=== PATIENT | female | born 1970 | race African-American/Black ===

== ENCOUNTER 2018-12-14 20:56 | Emergency (ER) | payer OTHER ==
[~2018-12-14] VITALS: Ht 165.1 cm; Wt 89.4 kg
[~2018-12-14 20:56] MED LIST: ACETAMINOPHEN-1 EAC1 PO; AMARYL2 MG PO; COZAAR100 MG; CYCLOBENZAPRINE10 MG PO; ELAVIL; FLEXERIL PO; GLUCOPHAGE1000 MG PO; GLUCOPHAGE500 MG PO; GLYCOPYRROLATE 22 M1; HUMALOG100 UNIT/1 SQ; INSULIN SYRING1 EA13 SUBQ; LANTUS100 UNIT/M SQ; LEVEMIR SUBQ; MOTRIN 600 MG600 M1 OR; NORCO 5-325 TA1 EACH PO; NOVOLIN R100 UNIT/1 SUBQ
[2018-12-14] MEDS ORDERED: NEURONTIN 300300 M1 PO (21:25)
[2018-12-14] MEDS ORDERED: LIPITOR 20 MG T20 M1 PO (21:25)
[2018-12-14] MEDS ORDERED: DEMADEX20 MG PO (21:26)
[2018-12-14] MEDS ORDERED: CARDIZEM CD240 MG PO (21:26)
[2018-12-14 21:42] LABS: CALCIUM 8.7 mg/dL (8.5-10.1); CREATININE 3.3 mg/dL (0.6-1.0); POTASSIUM 3.8 mmol/L (3.5-5.1)
[2018-12-14 21:53] LABS: ABSOLUTE NEUTROPHILS 8.2 thou/uL (1.4-8.2); BASOPHILS 0.6 % (0.0-2.0); EOSINOPHILS 1.4 % (0.0-3.0); HEMATOCRIT 32.6 % (37.0-47.0); LYMPHOCYTES 23.8 % (24.0-44.0); MCH 26.9 pg (26.0-34.0); MCHC 33.7 g/dL (28.0-37.0); MCV 79.7 fL (80.0-100.0); MONOCYTES 5.6 % (1.0-8.0); PLATELET COUNT 451 thou/uL (150-400); POLYS 68.6 % (36.0-66.0); RBC 4.09 mil/uL (4.20-5.00); RDW 13.2 % (10.5-14.5)
[2018-12-15] MEDS ORDERED: INSULIN SYRING1 EA28 SUBQ (00:36)
[2018-12-15 00:42] VITALS: BP 145/78
== END 2018-12-15 00:43 | disposition home or self-care (01) ==
LOC: ER 20:56
PROVIDERS: Emergency Medicine
DX: E11.22 Type 2 diabetes mellitus with diabetic chronic kidney disease (principal); N18.9 Chronic kidney disease, unspecified; I10 Essential (primary) hypertension; Z79.4 Long term (current) use of insulin; Z90.89 Acquired absence of other organs

== ENCOUNTER 2019-04-13 13:56 | Inpatient (IN) | payer OTHER ==
[~2019-04-13] VITALS: Ht 170.2 cm; Wt 89.4 kg
[~2019-04-13 13:56] MED LIST changes: +CARDIZEM CD240 MG PO; +DEMADEX20 MG PO; +INSULIN SYRING1 EA28 SUBQ; +LIPITOR 20 MG T20 M1 PO; +NEURONTIN 300300 M1 PO
[2019-04-13 13:58] VITALS: BP 119/67
[2019-04-13] MEDS ORDERED: ALBUTEROL2.5 MG/0.5 INH (14:11)
[2019-04-13 14:13] LABS: BE(vivo) -7.5 mmol/L (-2 to +3); HCO3 18.7 mmol/L (22.0-26.0); PCO2 40.3 mmHg (35.0-45.0); PO2 63.3 mmHg (80.0-100.0); pH 7.284 (7.360-7.450); sO2 89.7 % (92.0-98.0)
[2019-04-13 14:20] LABS: HEMATOCRIT 23.2 % (37.0-47.0); HEMOGLOBIN 7.8 gm/dL (12.0-15.0); MCH 27.6 pg (26.0-34.0); MCHC 33.4 g/dL (28.0-37.0); MCV 82.6 fL (80.0-100.0); PLATELET COUNT 398 thou/uL (150-400); RBC 2.81 mil/uL (4.20-5.00); RDW 13.7 % (10.5-14.5); WBC 20.6 thou/uL (4.0-11.0)
[2019-04-13 14:28] LABS: APTT 33.8 Seconds (24.5-32.8); INR 1.1; PROTIME 11.4 Seconds (9.3-11.4)
[2019-04-13 14:33] LABS: ALBUMIN 2.5 g/dL (3.4-5.0); CALCIUM 8.6 mg/dL (8.5-10.1); CREATININE 4.6 mg/dL (0.6-1.0); MAGNESIUM 2.2 mg/dL (1.8-2.4); TOTAL BILIRUBIN 1.2 mg/dL (<0.1-1.0); TOTAL PROTEIN 7.7 g/dL (6.4-8.2)
[2019-04-13 14:36] LABS: TROPONIN-I 0.72 ng/mL (<0.06)
[2019-04-13 14:41] LABS: ABSOLUTE NEUTROPHILS 16.3 thou/uL (1.4-8.2); METAMYELOCYTES 1 %; PLATELET ESTIMATE NORMAL
[2019-04-13 15:13] VITALS: BP 113/79
[2019-04-13 15:50] LABS: URINE BILIRUBIN NEGATIVE (Negative); URINE BLOOD TRACE (Negative); URINE CLARITY CLOUDY; URINE COLOR YELLOW; URINE GLUCOSE-RANDOM* TRACE (Negative); URINE KETONES NEGATIVE (Negative); URINE LEUKOCYTES-REFLEX NEGATIVE (Negative); URINE NITRITE-REFLEX NEGATIVE (Negative); URINE PROTEIN (DIPSTICK) 3+ (Negative); URINE SPECIFIC GRAVITY 1.025 (1.005-1.035); URINE UROBILINOGEN 0.2 E.U./dl (0.2-1.0)
[2019-04-13 15:54] LABS: AMP/METHAMP Negative (Negative); BARBITURATES Negative (Negative); BENZODIAZEPINES Negative (Negative); COCAINE Negative (Negative); METHADONE Negative (Negative); OPIATES POSITIVE (Negative); PCP Negative (Negative)
[2019-04-13 15:59] LABS: AMORPHOUS URATES Many /LPF (None Seen); SQUAMOUS 4-10 Moderate /LPF (0-3); URINE RBC 0-2 Rare /HPF (0-2); URINE WBC-REFLEX 6-15 Few /HPF (0-5)
[2019-04-13 16:00] LABS: FINE GRANULAR CASTS 0-3 Few /LPF (None Seen)
[2019-04-13 16:28] VITALS: BP 130/77
[2019-04-13 16:34] LABS: CHOLESTEROL 200 mg/dL (<200); HDL CHOLESTEROL 68 mg/dL (>40); LDL CHOLESTEROL 119 mg/dL (<100); TC:HDL 2.9 Ratio (Not establshd); TRIGLYCERIDE 69 mg/dL (<150); VLDL 14 mg/dL (<40)
[2019-04-13 17:20] VITALS: BP 124/73
--- NOTE | 2019-04-13 17:49 | NUR ---
TO UNIT FROM Abi AT 1715 BY RAFAEL, REPORT FROM HEIDE WALKER. ORIENTED TO UNIT, FALL PRECAUTIONS. RYAN TO DD. GRAF ORDERED. DR. TRUJILLO HERE. SR PER TELE. WILL CONTINUE TO FOLLOW
[2019-04-13 19:06] LABS: CALCIUM 9.5 mg/dL (8.5-10.1); CREATININE 4.7 mg/dL (0.6-1.0); MAGNESIUM 2.3 mg/dL (1.8-2.4)
[2019-04-13 19:09] LABS: POTASSIUM 6.2 mmol/L (3.5-5.1)
[2019-04-13 19:44] VITALS: BP 130/75
[2019-04-14] VITALS (7 sets, daily range): BP systolic 106–139; BP diastolic 67–84
[2019-04-14 02:52] LABS: PROT/CREAT RATIO 3.1; URINE CREATININE-RANDOM* 30.4 mg/dL; URINE PROTEIN-RANDOM* 93.7 mg/dL (<11.9)
--- NOTE | 2019-04-14 05:03 | NUR ---
ASSUMED PT CARE AT 1900 WITH NO SIGN OF DISTRESS NOTED IN PT. PT IS ALERT AND ORIENTED. FAMILY AT BEDSIDE. PT IS STABLE. PT IS SEEN BY DR MITCHELL. LABS ORDERED, CAT SCAN ORDERED. PT IS TRANSFERED FOR COMPLETION OF CAT SCAN. DAVIS IN PLACE. LASIX DRIP STARTED. ASSESSMENT COMPLTED AND CHARTED. SCHEDULED MEDS ADMINISTERED TO PT. PT TOLERATED PO INTAKE. FALL PRECAUTION IN PLACE. FAMILY AT BEDSIDE. CONTINUE TO MONITOR PATIENT. PT IS STABLE THROUGHOUT THE NIGHT. DENIES ANY FURTHER NEEDS AT THIS TIME.
[2019-04-14 05:10] LABS: GLYCOHEMOGLOBIN (HGB A1C) 14.6 % (4.8-5.6)
[2019-04-14 05:40] LABS: HEMATOCRIT 21.5 % (37.0-47.0); HEMOGLOBIN 7.1 gm/dL (12.0-15.0); MCH 27.1 pg (26.0-34.0); MCHC 33.1 g/dL (28.0-37.0); MCV 81.7 fL (80.0-100.0); RBC 2.64 mil/uL (4.20-5.00); RDW 13.6 % (10.5-14.5); WBC 18.7 thou/uL (4.0-11.0)
[2019-04-14 05:42] LABS: CREATININE 4.4 mg/dL (0.6-1.0); MAGNESIUM 2.1 mg/dL (1.8-2.4)
[2019-04-14 05:44] LABS: POTASSIUM 4.8 mmol/L (3.5-5.1)
[2019-04-14 11:30] LABS: ALBUMIN 2.5 g/dL (3.4-5.0); DIRECT BILIRUBIN 0.4 mg/dL (<0.1-0.3); TOTAL BILIRUBIN 0.5 mg/dL (<0.1-1.0)
--- NOTE | 2019-04-14 14:42 | 2DMMODE ---
[facility] [address] [place] [address] 2 D/M-MODE ECHOCARDIOGRAM Name: NICOLAS DELGADO Room #: 215-P [facility] IN .R.#: [id number] Admission: 04/13/19 Attend Phys: Guero Cohen, Discharge: Date of : 68 Date of Service: 04/14/19 1441 Report #: [id number] THIS REPORT FOR: //name// APPROVED REPORT Study performed: 04/14/2019 12:17:08 EXAM: Comprehensive 2D, Doppler, and color-flow Echocardiogram Patient Location: In-Patient Room #: 215 Status: routine BSA: 2.07 HR: 96 bpm BP: 127/75 mmHg Rhythm: NSR Other Information Study Quality: Adequate Indications Diabetes Elevated Troponin Hypertension/HDD HLD, Renal failure 2D Dimensions RVDd: 30.32 mm IVSd: 10.07 (7-11mm) LVOT Diam: 20.73 (18-24mm) LVDd: 48.47 mm PWd: 8.50 (7-11mm) Ascending Ao: 28.93 (22-36mm) LVDs: 35.00 (25-40mm) Aortic Root: 29.93 mm IVC: 23.00 mm Volumes Left Atrial Volume (Systole) Single Plane 4CH: 32.29 mL Single Plane 2CH: 48.91 mL LA ESV Index: 24.00 mL/m2 Aortic Valve AoV Peak Lexa.: 1.38 m/s AO Peak Gr.: 7.66 mmHg LVOT Max P.48 mmHg LVOT Max V: 0.93 m/s SATINDER Vmax: 2.27 cm2 Mitral Valve [facility] [address] [place] [address] 2 D/M-MODE [facility]OCARDIOGRAM [facility] #: [facility]P [facility] IN [facility].#: [id number] Admission: 04/13/19 Attend Phys: Guero Cohen, Discharge: Date of : 68 Date of Service: 04/14/19 1441 Report #: [id number] E/A Ratio: 1.2 MV Decel. Time: 140.79 ms MV E Max Lexa.: 1.18 m/s MV A Lexa.: 0.97 m/s MV PHT: 40.83 ms IVRT: 83.04 ms Pulmonary Valve PV Peak Lexa.: 0.96 m/s PV Peak Gr.: 3.66 mmHg Pulmonary Vein P Vein S: 0.45 m/s P Vein A: 0.30 m/s P Vein D: 0.38 m/s P Vein A Dur.: 90.0 msec P Vein S/D Ratio: 1.18 Tricuspid Valve TR Peak Lexa.: 2.62 m/s TR Peak Gr.: 27.45 mmHg PA Pressure: 42.00 mmHg Left Ventricle The left ventricle is normal size. There is normal left ventricular wall thickness. The left ventricular systolic function is normal. The left ventricular ejection fraction is within the normal range. LVEF is 50-55%. The left ventricular diastolic function is normal. Right Ventricle The right ventricle is normal size. The right ventricular systolic function is normal. Atria The left atrium size is normal. The right atrium size is normal. Aortic Valve The aortic valve is normal in structure. No aortic regurgitation is present. There is no aortic valvular stenosis. Mitral Valve The mitral valve is normal in structure. Mild mitral regurgitation. No evidence of mitral valve stenosis. Tricuspid Valve The tricuspid valve is normal in structure. Mild tricuspid regurgitation. Estimated PAP is 42mmHg. [address] [address] 2 D/M-MODE ECHOCARDIOGRAM Name: JAYLIN DELGADOERWIN Room #: 215-P [facility] IN M.R.#: [id number] Admission: 04/13/19 Attend Phys: Guero Cohen, Discharge: Date of : 68 Date of Service: 04/14/19 1441 Report #: [id number] Pulmonic Valve Pulmonic valve is not well visualized. Great Vessels The aortic root is normal in size. IVC is normal in size and collapses <50% with inspiration. Pericardium Trace pericardial effusion. <Conclusion> The left ventricle is normal size. LVEF is 50-55%. The aortic valve is normal in structure. The mitral valve is normal in structure. Mild mitral regurgitation. The tricuspid valve is normal in structure. Mild tricuspid regurgitation. Estimated PAP is 42mmHg. Pulmonic valve is not well visualized. Trace pericardial effusion. <ELECTRONICALLY SIGNED> By: Martinez Vicente MD 04/14/19 1441 1441 144 Martinez Vicente MD /INF
--- NOTE | 2019-04-14 16:15 | NUR ---
PT ALERT AND ORIENTED TIMES FOUR, BUT SOMEWHAT SLOW TO RESPOND TO QUESTIONS. VSS, 100%2L, SR ON TELE, DAVIS TO DD. LASIX GTT INFUSING PER ORDER. PT DENIES PAIN/SOA. PT TOLERATES MEDS AND SMALL PORTIONS OF MEALS. PT UP TO RESTROOM WITH STANDBY ASSIST. PT BEDSIDE. WILL CONTINUE TO MONITOR.
--- NOTE | 2019-04-14 18:56 | HC ---
[facility] [place] [address] CONSULTATION Name: NICOLAS DELGADO Room #: 215-P [facility] IN M.R.#: [id number] Admission: 04/13/19 Attend Phys: Guero Cohen MD Discharge: Date of : 68 Report #: [id number] THIS REPORT FOR: //name// CC: Guero Donahue DATE OF SERVICE: 04/14/2019 ENDOCRINE CONSULTATION NOTE CONSULTING PHYSICIAN: Dr. Joel Romero. REASON FOR CONSULTATION: Uncontrolled type 2 diabetes mellitus. HISTORY OF PRESENT ILLNESS: This is a 49-year-old female patient whose medical background is significant for chronic kidney disease, hypertension, type 2 diabetes mellitus and hyperlipidemia. The patient was admitted yesterday with increasing somnolence, weakness and fatigue and was found to have hyperkalemia as well as acute kidney failure. The patient notes that she has been a diabetic for many years and that she had gradually transitioned from oral antidiabetic agents to insulin based therapy a few years ago. Unfortunately, due to lack of access to medications, she has been without any insulin for over a year until she resumed it again a few months ago when she became employed again. Currently, she is on a regimen of Levemir insulin 50 units q.p.m. and NovoLog insulin at 20 units t.i.d. a.c. The patient has been checking her blood glucose at home only sporadically and notes that most of these have been under 300 mg/dL. She denies issues with hypoglycemia, but notes that she has had occasions of blood glucose getting into the 80s; at which point, she would start developing hypoglycemic symptoms. As noted above, the patient has chronic kidney disease; bilateral diabetic retinopathy, warranting laser surgery over both eyes; diabetic peripheral neuropathy, but not cardiac disease. Also, she is known to have hypertension and hyperlipidemia. REVIEW OF SYSTEMS: CONSTITUTIONAL: Fatigue, tiredness, but not fever or chills. PULMONARY: No cough or hemoptysis, but has had some dyspnea on exertion and shortness of breath. HEENT: Negative for congestion, ear discharge, ear aches. CARDIAC: Some chest tightness, palpitations, but not syncope or presyncope. GASTROINTESTINAL: Abdominal discomfort, nausea, but no vomiting. No change in level frequency. NEUROLOGY: Weakness, lightheadedness, but not seizures or loss of consciousness. [facility] [address] [place] [address] CONSULTATION Name: NICOLAS DELGADO Room #: 215-P [facility] IN M.R.#: [id number] Admission: 04/13/19 Attend Phys: Guero Cohen MD Discharge: Date of : 68 Report #: [id number] SKIN: Negative for rash, ulceration or itching. PSYCHIATRIC: Negative for confusion, delusions, hallucinations. Otherwise, review of system is noncontributory, unless mentioned in HPI. PAST MEDICAL HISTORY: 1. Type 2 diabetes mellitus. 2. Chronic kidney disease. 3. Hyperlipidemia. 4. Hypertension. 5. Peripheral diabetic neuropathy. 6. Diabetic retinopathy. PAST SURGICAL HISTORY: Tonsillectomy. FAMILY HISTORY: Noncontributory. SOCIAL HISTORY: The patient is . She has four children. She works in customer service. Denies use of tobacco. Drinks alcohol only rarely. OUTPATIENT MEDICATIONS: Include Levemir insulin 50 units q.p.m., NovoLog insulin 20 units t.i.d. a.c., losartan 100 mg daily, amitriptyline, gabapentin 300 mg b.i.d., atorvastatin 20 mg at night, torsemide 20 mg daily, diltiazem 240 mg daily, AccuNeb solution q.i.d. ALLERGIES: No known drug allergies. PHYSICAL EXAMINATION: GENERAL: This is a pleasant -[place] female patient who is not in apparent distress. VITAL SIGNS: Blood pressure is 127/75 mmHg, heart rate is 98 beats per minute, respirations 18 per minute, temperature 36.7 degrees. HEENT: Anicteric sclerae. Intact extraocular motions. NECK: Supple, without JVD, carotid bruits or lymphadenopathy. I do not appreciate thyromegaly. CHEST: Noted for moderate air entry bilaterally with scattered rales, but no rhonchi or wheezes. HEART: Regular rate and rhythm without murmurs or gallops. ABDOMEN: Soft and lax without tenderness or organomegaly. She has active bowel sounds. LOWER EXTREMITIES: Noted for trace ankle edema bilaterally. Diminished sensation to light touch, but no ulceration. NEUROLOGIC: Awake, alert and oriented to time, place and person. The remainder of her examination is nonfocal other than for lower extremity sensory deficit. PSYCHIATRIC: Pleasant, awake, alert, oriented to time, place and person, interactive. Normal mood and affect. SKIN: Intact. No rash or ulceration. [facility] [address] [place] [address] CONSULTATION Name: NICOLAS DELGADO Room #: 215-P [facility] IN M.R.#: [id number] Admission: 04/13/19 Attend Phys: Guero Cohen MD Discharge: Date of : 68 Report #: [id number] LABORATORY DATA: Blood sugar values since arrival ranged from 195-330 mg/dL. Otherwise, sodium 133, potassium 4.8, chloride 96, CO2 of 23, anion gap of 14, BUN 52, creatinine 4.4. Her baseline is at 1.1 in 2013, AST 158, lipase 297, total bilirubin 1.2, calcium 9.0, magnesium 2.1, alkaline phosphatase 251, ALT 141, total protein 7.7, albumin 2.5, EGFR 13, troponin 0.42. Total cholesterol 200, triglycerides 69, HDL 68, LDL 119. BNP 15,423. INR 1.1. White blood count 18.7, hemoglobin 7.1, hematocrit 21.5, platelets 422. Hemoglobin A1c of 14.6%. Procalcitonin 3.94. Urine protein +3. ASSESSMENT AND PLAN: 1. Type 2 diabetes mellitus. As noted above, the patient has a fairly uncontrolled baseline as reflected by her report, her daily blood glucose values, the measured hemoglobin A1c of 14.6%, and the abundance of microvascular complications that she has suffered over the years. The patient and I had a lengthy discussion about the pathogenesis of diabetes mellitus and the importance of maintaining adequate control so as to stabilize these complications and hopefully prevent further progression, which she seems to understand well. Unfortunately, the patient's ability to maintain adequate control has been hindered by her inability to access antidiabetic agents, but fortunately, she has regained insurance coverage a few months ago and this would be a huge help to our ability to control her disease better. In the immediate setting, I will place the patient on: 1. Lantus insulin 30 units q.p.m. 2. Humalog insulin 10 units t.i.d. a.c. 3. Humalog insulin supplemental scale, moderate intensity. Furthermore, we will monitor her blood glucose values a.c. and at bedtime and adjust her insulin regimen according to these values to implement the best control possible. 2. Hyperlipidemia. The patient is on atorvastatin therapy; however, her lipid panel is indicative of inadequate control, this will need to be augmented, but I would wait until her overall state has been stabilized further. 3. Hypertension. The patient's blood pressure control is adequate. She is currently on diltiazem, furosemide. Dr. Romero is actively following the patient. [facility] [address] [place] [address] CONSULTATION Name: JAYLIN DELGADOERWIN Room #: 215-P ADM IN M.R.#: [id number] Admission: 04/13/19 Attend Phys: Guero Cohen MD Discharge: Date of : 68 Report #: [id number] 4. Chronic kidney disease. The patient has acute on chronic kidney injury. She is undergoing evaluation and management by Dr. Romero. 5. Cardiovascular disease. The patient has elevated troponin, significantly elevated BNP and undergoing a Cardiology evaluation at this point as well. I greatly appreciate Dr. Romero's invitation to participate in the care of this pleasant patient. <ELECTRONICALLY SIGNED> By: Angelica Zhu MD 04/14/19 1856 1107 1145 Angelica Zhu MD /nt
--- NOTE | 2019-04-15 05:19 | NUR ---
ASSUMED PT CARE AT 1900 WITH NO SIGN OF DISTRESS NOTED IN PT.PT IS ALERT AND ORIENTED. FAMILY AT BEDSIDE. ASSESSMENT COMPLETED AND CHARTED. VITAL SIGNS STABLE. SCHEDULED MEDS ADMINISTERED TO PT. PT TOLERATED PO INTAKE. DENIES ANY FURTHER NEEDS AT THIS TIME.
[2019-04-15 05:23] VITALS: BP 134/77
[2019-04-15 06:09] LABS: RBC 2.58 mil/uL (4.20-5.00); RDW 13.8 % (10.5-14.5); WBC 22.4 thou/uL (4.0-11.0)
[2019-04-15 06:10] LABS: HEMATOCRIT 20.8 % (37.0-47.0); MCH 27.2 pg (26.0-34.0); MCHC 33.7 g/dL (28.0-37.0); MCV 80.8 fL (80.0-100.0)
[2019-04-15 06:24] LABS: ALBUMIN 2.3 g/dL (3.4-5.0); CALCIUM 8.7 mg/dL (8.5-10.1); CREATININE 4.4 mg/dL (0.6-1.0); MAGNESIUM 2.1 mg/dL (1.8-2.4); PHOSPHORUS 4.4 mg/dL (2.5-4.9); POTASSIUM 4.1 mmol/L (3.5-5.1)
[2019-04-15 08:00] VITALS: BP 141/80
[2019-04-15 09:51] LABS: % SATURATION 21 % (20-39); IRON 41 ug/dL (50-170); TIBC 199 ug/dL (250-450)
[2019-04-15 12:06] VITALS: BP 135/84
--- NOTE | 2019-04-15 12:15 | NUR ---
ASSUMED CARE AT 0700, SHIFT ASSESSMENT DONE, MEDS GIVEN, VSS. DENIES PAIN, NAUSEA, VOMITING. ON LASIX DRIP AT 10 MLS/HR. IV ANTIBITOICS ADMINISTERED. WORKED WITH PHYSCIAL AND OCCUPATIONAL THERAPHY, REMAINS ON ROOM AIR. WILL NEED 4L NC WITH ACTIVITY PER RESP THERAPHY. NPO STARTING AT 1130 FOR ABDOMINAL US SCHEDULED AT 1500. WILL CONTINUE TO ASSESS AND ASSIST WITH ADLs NEEDED.
[2019-04-15 12:36] LABS: HEMATOCRIT 23.7 % (37.0-47.0); HEMOGLOBIN 7.7 gm/dL (12.0-15.0)
--- NOTE | 2019-04-15 13:46 | EKG ---
[address] [address] ELECTROCARDIOGRAM REPORT Name: NICOLAS DELGADO Room #: 215-P ADM IN M.R.#: [id number] Admission: 04/13/19 Attend Phys: Guero Cohen MD Discharge: Date of : 68 Report #: [id number] THIS REPORT FOR: //name// [facility] ED Test Date: 2019-04-13 Test Time: 14:04:19 Pat Name: NICOLAS DELGADO Department: Room: [facility] Gender: F Financial Legal Assistant: ZAK : 1970 Requested By: Rangel Cho Order Number: [id number] MD: Nehemiah Butler Measurements Intervals Goodman Rate: 72 P: 42 HI: 138 QRS: 44 QRSD: 88 T: 106 QT: 367 QTc: 402 Interpretive Statements Sinus rhythm Nonspecific T abnrm, anterolateral leads No previous ECG available for comparison Electronically Signed On 04-15-2019 13:46:43 CDT by Nehemiah Butler [email or web address] <ELECTRONICALLY SIGNED> By: Nehemiah Butler MD, [facility] 04/15/19 1346 1404 1404 Nehemiah Butler MD, FACC /EPI
--- NOTE | 2019-04-15 13:58 | EKG ---
[address] [address] ELECTROCARDIOGRAM REPORT Name: NICOLAS DELGADO Room #: 215-P ADM IN M.R.#: [id number] Admission: 04/13/19 Attend Phys: Guero Cohen MD Discharge: Date of : 68 Report #: [id number] THIS REPORT FOR: //name// [facility] Test Date: 2019-04-14 Test Time: 07:29:19 Pat Name: NICOLAS DELGADO Department: Room: 215 P Gender: F Health Professional: MAGDY : 1970 Requested By: Nehemiah Butler Order Number: [id number] MD: Nehemiah Butler Measurements Intervals Arnold Rate: 98 P: 65 LA: 164 QRS: 39 QRSD: 84 T: 54 QT: 373 QTc: 477 Interpretive Statements Sinus rhythm No significant abnormality No previous ECG available for comparison Electronically Signed On 04-15-2019 13:58:12 CDT by Nehemiah Butler [email or web address] <ELECTRONICALLY SIGNED> By: Nehemiah Butler MD, [facility] 04/15/19 1358 0729 07 Nehemiah Butler MD, FACC /EPI
--- NOTE | 2019-04-15 14:31 | NUR ---
Chart reviewed and case discussed with the care team. No cm interventions indicated at this time. Dc timeframe is uncertain. Pt is improving. She lives with her spouse and was indep prior to admission. The pt has health insurance and a pcp in place for followup care. Will remain available should dc needs arise.
--- NOTE | 2019-04-15 14:32 | HC ---
[facility] [place] [address] CONSULTATION Name: NICOLAS DELGADO Room #: 215-P ADM IN M.R.#: [id number] Admission: 04/13/19 Attend Phys: Guero Cohen MD Discharge: Date of : 68 Report #: [id number] THIS REPORT FOR: //name// CC: Guero Donahue DATE OF SERVICE: 04/14/2019 INFECTIOUS DISEASE CONSULTATION REASON FOR CONSULTATION: I was asked to evaluate concerning bilateral pulmonary infiltrates. HISTORY OF PRESENT ILLNESS: The patient is a 49-year-old with history of diabetes, obesity, hypertension, chronic kidney disease, diabetic nephropathy, who had been off her medications for some time due to loss of insurance. Several weeks ago, she went back on her medications when she got her insurance. Over the last several weeks, she has had progressive decline with shortness of breath, followed by confusion, weakness, multiple falls. Denied any fever, chills or sweats. No gross aspiration by history. When she presented to the Emergency Room, she was encephalopathic, normotensive, hyperkalemic, hypoxic. She was treated for hyperkalemia. Her creatinine was 4.2. She was seen by Nephrology, who has adjusted her medications and fluids. Her procalcitonin was elevated as well as her white count. Again, she has had no cough or sputum production. Her main complaint has been shortness of breath. She has had no chest pain either dull or pleuritic in nature. She has had no hemoptysis. She was placed on azithromycin and ceftriaxone. PAST MEDICAL HISTORY: Diabetes, hypertension, hyperlipidemia, chronic kidney disease, diabetes, tonsillectomy. FAMILY HISTORY: Noncontributory. SOCIAL HISTORY: Nonsmoker, no significant alcohol intake. She is . ALLERGIES: None known. MEDICATIONS: As noted on her MAR, which were reviewed. REVIEW OF SYSTEMS: Notes no GI or complaints. She has had no rashes or adenopathy. Full 10-point review was negative other than what has been described above. PHYSICAL EXAMINATION: VITAL SIGNS: Afebrile and hemodynamically stable. GENERAL: She was alert and cooperative and pleasant, in no acute distress. She [facility] [address] [place] [address] [facility] #: [facility] IN M.R.#: [id number] Admission: 04/13/19 Attend Phys: Guero Cohen MD Discharge: Date of : 68 Report #: [id number] was obese. SKIN: Without rash or decubitus. No palpable adenopathy. HEENT: Eyes, without scleral icterus. Mouth without mucositis. NECK: Supple. HEART: Regular, without murmur, gallop or rub. LUNGS: Few crackles heard in the bases in the mid chest and below. No consolidation. ABDOMEN: Soft, nontender, no hepatosplenomegaly or mass appreciated. GENITAL AND RECTAL: Not performed. EXTREMITIES: With 1+ peripheral edema. No clubbing or cyanosis. NEUROLOGIC: Cranial nerves intact. Strength in her upper and lower extremities was normal. Sensation in upper and lower extremities normal. Mood was normal. LABORATORY STUDIES: Reviewed. Chest x-ray reviewed. CT scan of the chest reviewed. CT scan of the head reviewed. IMPRESSION: A 49-year-old with underlying diabetic nephropathy, hypertension, hyperlipidemia, presents with respiratory compromise, bilateral pulmonary infiltrates, acute on chronic renal failure, hyperkalemia and congestive heart failure. Her BNP was initially 15,000. Echocardiogram was unable to identify evidence of diastolic heart failure. EF was reasonable. Bilateral infiltrates, I still suspect is most likely congestive heart failure. With the change in her mental status, we could be dealing with aspiration, although she has no cough or fever. This would explain her leukocytosis and elevated procalcitonin level. Her urinalysis did have moderate bacteria, but again the patient is without symptoms of dysuria or frequency. Her mental status has improved as her creatinine and electrolytes have improved, suspecting this is most likely toxic metabolic, possibly related to some of her medications. RECOMMENDATIONS: We will continue antibiotic coverage as the patient is currently on. I would like to do serial chest x-rays as she continues diuresis and back on appropriate medications. We will also await blood and urine culture results. We will then adjust antibiotics accordingly. <ELECTRONICALLY SIGNED> By: Rangel Andrea MD 04/15/19 1432 2100 222 Rangel Andrea MD /nt
[2019-04-15 16:00] VITALS: BP 141/78
[2019-04-16 00:09] LABS: COMPLEMENT-C3 188 mg/dL (82-167); COMPLEMENT-C4 62 mg/dL (14-44)
[2019-04-16 04:56] VITALS: BP 146/89
--- NOTE | 2019-04-16 05:20 | NUR ---
ASSUMED PT CARE AT 1900. NO SIGN OF DISTRESS NOTED. FAMILY AT BEDSIDE. PT IS STABLE. ASSESSMENT COMPLETED AND CHARTED. VITAL SIGNS STABLE. SCHEDULED MEDS ADMINISTERED TO PT. PT TOLERATED PO INTAKE. DENIES ANY NEED. CONTINUE TO MONITOR PT.
[2019-04-16 05:32] LABS: HEMATOCRIT 24.6 % (37.0-47.0); HEMOGLOBIN 8.1 gm/dL (12.0-15.0); MCH 26.4 pg (26.0-34.0); MCHC 32.7 g/dL (28.0-37.0); MCV 80.6 fL (80.0-100.0); RBC 3.06 mil/uL (4.20-5.00); RDW 14.3 % (10.5-14.5); WBC 18.9 thou/uL (4.0-11.0)
[2019-04-16 05:53] LABS: CALCIUM 8.9 mg/dL (8.5-10.1); CREATININE 3.8 mg/dL (0.6-1.0); MAGNESIUM 1.7 mg/dL (1.8-2.4); POTASSIUM 3.3 mmol/L (3.5-5.1)
[2019-04-16 12:00] VITALS: BP 131/75
[2019-04-16 16:40] VITALS: BP 129/64
--- NOTE | 2019-04-16 17:09 | NUR ---
ASSSESSMENTS CHARTED - MEDS PER MAR - GIVEN TYLENOL FOR CO'S OF CRAMPS - PATIENT MENSTRATING AT THE PRESENT TIME. NEAL DIET AND FLUIDS WITH NO CO'S OF NAUSEA. CHEST XRAY COMPLETED THIS AM. RYAN PEDERSEN D/C @ 8021. LESIA CHRISTINE D/C. PATIENT STARTED ON DEMEDEX PRDERED. PT UP TO THE BATHROOM - UNSTEADY ON FEET. ACCUCHECKS CHARTED - COVERED PER SSI AND ORDERED INSULIN POST MEALS. BY THE BEDSIDE FOR THE DAY. NO CO'S AT THE PRESENT TIME.
[2019-04-16 20:04] VITALS: BP 120/70
--- NOTE | 2019-04-17 03:37 | NUR ---
RECEIVED PT'S CARE AT 1920; PT. ON BED; AOX4; RELATIVES AT THE BED SIDE; DURING ASSESSMENT PT. ABLE TO ANSWER PLACE; TIME; SITUATION; NO C/O PAIN; ABLE TO AMBULATE FROM BED TO RESTROOM WITH SOMEONE STAND BY; STABLE WHEN AMBULATING; EDUCATED ABOUT CALLING BEFORE GETTING OUT OF BED; ST. UNDERSTANDING; HS MEDICATION GIVEN; BS 99; LUNCH BOX GIVEN; LANTUS GIVEN; 38 UNITS; I/0 MONITORING; EDUCATED ABOUT FLUIDS INTAKE; ST. UNDERSTANDING; EDUCATED ABOUT SCDs; ST. UNDERSTANDING; AGREES TO USE IT; ABLE TO REST AFTER MIDNIGHT; REFUSED SCDs AFTER MIDNIGHT; ASSESSMENT CHARGED; FOLLOWING POC; MONITORING; WILL PASS ON REPORT.
[2019-04-17 04:55] LABS: ABSOLUTE NEUTROPHILS 9.9 thou/uL (1.4-8.2); BASOPHILS 0.3 % (0.0-2.0); EOSINOPHILS 2.5 % (0.0-3.0); HEMATOCRIT 24.9 % (37.0-47.0); HEMOGLOBIN 8.1 gm/dL (12.0-15.0); LYMPHOCYTES 21.9 % (24.0-44.0); MCH 26.6 pg (26.0-34.0); MCHC 32.7 g/dL (28.0-37.0); MCV 81.5 fL (80.0-100.0); MONOCYTES 7.2 % (1.0-8.0); PLATELET COUNT 594 thou/uL (150-400); POLYS 68.1 % (36.0-66.0); RBC 3.05 mil/uL (4.20-5.00); RDW 14.2 % (10.5-14.5); WBC 14.6 thou/uL (4.0-11.0)
[2019-04-17 05:03] LABS: ALBUMIN 2.3 g/dL (3.4-5.0); CALCIUM 8.7 mg/dL (8.5-10.1); CREATININE 3.6 mg/dL (0.6-1.0); POTASSIUM 3.9 mmol/L (3.5-5.1); TOTAL BILIRUBIN 0.2 mg/dL (<0.1-1.0); TOTAL PROTEIN 7.2 g/dL (6.4-8.2)
[2019-04-17 05:20] VITALS: BP 135/76
[2019-04-17 08:01] VITALS: BP 133/75
--- NOTE | 2019-04-17 18:13 | NUR ---
ASSESSMENT CHARTED - MEDS PER OCT - GIVEN TYLENOL FOR CO'S OF CRAMPS THIS AM WITH EFFECT. NEAL DIET AND FLUIDS. UP TO THE BATHROOM PRN WITH STBY ASSIST. ACCUCHECKS CHARTED - PATIENT GIVEN REDUCED DOSE OF LISPRO POST LUNCH - NEW ORDER FOE 12 UNITS - PT DID NOT EAT VERY MUCH LUNCH - PATIENT STATED THAT SHE WAS FEELING HOT AND SWEATY - BS CHECKED CRITICAL LOW - GIVEN 1 AMP D50 - UP TO 170 - RECHECKED 106 PRIOR TO DINNER BS 61 GIVEN CRACKERS -COOKIE - MILK - DOWN TO 52 GIVEN GLUCOSE GEL - POST DINNER IT IS NOW 65. WILL CHECK WITH ANOTHER MACHINE AND AND TREAT NEEDED. AT THE BEDSIDE. BLOOD SUGAR AT PRESENT TIME IS 101 - POST DINNER HUMALOG HELD. NO CO'S AT THE PRESENT TIME.
[2019-04-17 19:42] VITALS: BP 144/75
[2019-04-17 19:45] VITALS: BP 144/75
--- NOTE | 2019-04-18 04:14 | NUR ---
RECEIVED PT'S CARE AROUND 1936; PT. ON BED; AOX4; RELATIVES AT THE BED SIDE; DURING ASSESSMENT NO C/O PAIN; EDUCATED ABOUT MONITORING BS THROUGH THE NIGHT; ST. UNDERSTANDING; BS ABOVE 252; CHECK CHARTING; INSULIN GIVEN PER ORDER; EDUCATED ABOUT HAVING A SNACK IN ORDER TO AVOID DECREASE BS; ST. UNDERSTANDING; HS MEDICATION GIVEN; AT MIDNIGHT BS ON THE 150s; NO C/O HEADACHE OR SWEATINESS; ABLE TO REST MOST OF THE NIGHT WITH EYES CLOSED; ASSESSMENT CHARGED; FOLLOWING POC; MONITORING; WILL PASS ON REPORT.
[2019-04-18 04:32] LABS: ALBUMIN 2.5 g/dL (3.4-5.0); CALCIUM 8.7 mg/dL (8.5-10.1); CREATININE 3.2 mg/dL (0.6-1.0); PHOSPHORUS 4.4 mg/dL (2.5-4.9); POTASSIUM 4.4 mmol/L (3.5-5.1)
[2019-04-18 04:46] VITALS: BP 122/72
--- NOTE | 2019-04-18 06:48 | HC ---
[facility] [place] [address] CONSULTATION Name: NICOLAS DELGADO Room #: 215-P [facility] IN M.R.#: [id number] Admission: 04/13/19 Attend Phys: Guero Cohen MD Discharge: Date of : 68 Report #: [id number] THIS REPORT FOR: //name// CC: Guero Donahue DATE OF SERVICE: 04/13/2019 NEPHROLOGY CONSULTATION REASON FOR CONSULTATION: Renal failure and pulmonary edema. HISTORY OF PRESENT ILLNESS: This is a 49-year-old female with a 20-year history of diabetes mellitus. She also has a history of some hypertension. She has a longstanding diagnosis of chronic kidney disease due to diabetic nephropathy. She has been followed intermittently in our office by Dr. Joel Romero. All of that has been previously diagnosed. She has been lost to followup recently and just showed back up a couple of weeks ago. At that time, she told him that she had been out of her medications. She has had no insurance. She had not been compliant with followup or any of her medications. At that time, her blood pressure was 185/80 and her labs showed a creatinine level of 4.2, which was up from 3.4 about 15 months previously. At that time, she was restarted on her diltiazem, carvedilol, and her torsemide, which were some of her baseline meds. She had not previously been on an FILEMON inhibitor nor an angiotensin receptor julio cesar. Today, the patient presented to the Emergency Room very weak. She had some mental status changes according to the Emergency Room. Her daughter is with her at this time and says she has been having some slurred speech, which she continues to exhibit at this time. Also, mild difficulty with word finding. Seven to ten days ago, she had multiple falls without any reported trauma. No CT scan was done of her head. On presentation in the Emergency Room, her blood pressure was 119/67. Originally, her oxygen saturation was 94%, but her blood gas was very poor on 10 liters per facemask. Additionally, her labs were worse. Creatinine level was up to 4.6 with a BUN of 45, potassium was 7.0 with a bicarbonate of 23. Her glucose at that time was 214. By comparison with the recent laboratory from the office with a creatinine level of 4.2. Again, she has not been on potassium supplementation, potassium-sparing diuretics, nor an FILEMON inhibitor nor an angiotensin receptor julio cesar. Her EKG from the Emergency Room showed no changes of hyperkalemia. She was treated with albuterol, insulin, dextrose, sodium bicarbonate and calcium. Repeat potassium level done at 1848 hours which was 4 hours after the original check was down to 6.2. PAST MEDICAL HISTORY: Type 2 diabetes as noted above. Also, history of hypertension. She denies any history of heart disease, CVA, pulmonary disease, but upon later looking at her meds, she was on several inhalers. She denies a history of asthma or COPD, but her inhalers would suggest otherwise. She has never had any operations or surgeries. [address] [address] CONSULTATION Name: NICOLAS DELGADO Room #: 215-P ADM IN M.R.#: [id number] Admission: 04/13/19 Attend Phys: Guero Cohen MD Discharge: Date of : 68 Report #: [id number] MEDICATIONS: As listed in the office include carvedilol 25 mg b.i.d., torsemide 40 mg daily, diltiazem 240 mg daily. The Emergency Room lists losartan as being a medication, but we do not have record that she was on that. She was also on some gabapentin 600 mg twice daily, amitriptyline, atorvastatin 20 mg daily, albuterol inhaler, insulin and from the office list Tresiba, ProAir inhaler, Breo Ellipta inhaler. ALLERGIES: No known medical allergies. SOCIAL HISTORY: The patient is , lives in [place], [place]. She recently started a new job with [employer] at a [employer] center for medications. She is accompanied by her daughter at this time. REVIEW OF SYSTEMS: She has had a lot of weakness. This includes lightheadedness and dizziness. Again, she had several falls 7 to 10 days ago. She needed help getting in today. She has had some of the slurred speech and some difficulty with word finding. She denies cough. She has had a lot of dyspnea. She has pain in her chest with the dyspnea and when she does have a cough, no sputum production, no hemoptysis. She denies nausea, vomiting or bowel changes. No dysuria. She has had lower extremity edema that she thinks has gotten somewhat better since she was started back on the torsemide 9 days ago. She is unaware of fevers, chills or sweats. No skin rashes. No arthralgias or myalgias. PHYSICAL EXAMINATION: GENERAL: This is an obese 49-year-old female. She is awake and responsive, although again has some slurred speech and very mild expressive aphasia. VITAL SIGNS: Blood pressure 130/75, heart rate 88, temperature 98.3, respiratory rate 20, oxygen saturation 93%. HEENT: Pupils are equal and reactive. Sclerae nonicteric. Oral mucosa is moist, without lesions. NECK: Supple without adenopathy, thyromegaly, JVD or bruit. CHEST: Shows decreased excursion. She is decreased in the bases. She has peripheral rales. No wheezes or rhonchi. ABDOMEN: Obese, has active bowel sounds, is soft and nontender. I am unable to palpate organomegaly or masses. EXTREMITIES: She has 1+ bilateral lower extremity edema. She has 1+ peripheral pulses. I reviewed her chest x-ray, which shows pulmonary edema, although the interpretation is difficult due to poor shadowing due to excessive adipose tissue. I reviewed her EKG, which shows normal sinus rhythm with no changes of hyperkalemia. [facility] [address] [place] [address] CONSULTATION Name: NICOLAS DLEGADO Room #: 215-P ADM IN M.R.#: [id number] Admission: 04/13/19 Attend Phys: Guero Cohen MD Discharge: Date of : 68 Report #: [id number] LABORATORY DATA: On original presentation today, sodium 130, potassium 7.0, chloride 98, bicarbonate 23, BUN 45, creatinine 4.6, glucose 214, AST 158, ALT 141, calcium 8.6, phosphorus 2.2, total protein 7.7, albumin 2.5. Troponin was at 0.72 and then 0.67. White count 20.6, hemoglobin 7.8, hematocrit 23.2, platelets 398,000. Differential on the white count, 73 neutrophils, 6 bands, 7 lymphs, 13 monocytes. Urinalysis, specific gravity 1.025, pH 5.5, 3+ protein, 0 to 2 red cells, 6-15 white cells, 10-30 bacteria. Some fine granular casts are seen. Blood gas on presentation, pH 7.28, pCO2 of 40.3, pO2 of 63.3 on 100% per nonrebreather. ASSESSMENT: 1. Hyperkalemia related to her renal failure. She was treated in the Emergency Room. Her potassium has already dropped to 6.5. I am going to start her on a forced diuresis and she should do additionally waste some potassium to get that potassium level down. She had no electrocardiogram changes with her original hyperkalemia. 2. Chronic kidney disease stage 5. Creatinine level is up substantially and this has been an elevated creatinine for quite some time. She has known diabetic nephropathy. Unfortunately with the volume overload, hyperkalemia and metabolic acidosis, this may be nearing end-stage renal disease. 3. Pulmonary edema. She has gotten some IV furosemide. I will start her on a Lasix drip and try to get aggressive diuresis going. We will see how she responds to that. She may need either additional diuretics or some dialysis treatments. 4. Longstanding diabetic nephropathy as noted above. 5. Hypertension, previously more severe than it is now. 6. Elevated troponin. EKG without evidence of acute ischemic changes. 7. Multiple central nervous system changes including the expressive aphasia, slurred speech, and multiple falls. She needs a CT scan to make sure she had not had an acute stroke or to make sure she did not have a subdural after her falls. PLAN: 1. Start her on a Lasix drip at 10 mg per hour. 2. Watch urine output and weigh daily. 3. Repeat labs to make sure her potassium level continues to come down. 4. Renal diet. 5. As long as her potassium continues to improve, she should not need any additional intervention for her potassium. 6. If she does not respond to diuretics appropriately, we will consider initiation of hemodialysis, but I am afraid this will be chronic hemodialysis with her severely compromised renal function currently. 7. CT scan of the head. 8. Additionally, I will stop the gabapentin as some of her slurred speech and [address] [address] CONSULTATION Name: NICOLAS DELGADO Room #: 215-P ADM IN M.R.#: [id number] Admission: 04/13/19 Attend Phys: Guero Cohen MD Discharge: Date of : 68 Report #: [id number] grogginess may be due to high doses of gabapentin if it also was just restarted. 9. We will follow along very closely in the care of this acutely ill patient. <ELECTRONICALLY SIGNED> By: Brown Sanchez MD 04/18/19 0648 03 0042 Brown Sanchez MD /nt
[2019-04-18 07:58] VITALS: BP 133/69
[2019-04-18 12:09] VITALS: BP 140/75
[2019-04-18 13:26] LABS: HEMATOCRIT 26.5 % (37.0-47.0); HEMOGLOBIN 8.4 gm/dL (12.0-15.0); MCH 26.5 pg (26.0-34.0); MCHC 31.7 g/dL (28.0-37.0); MCV 83.7 fL (80.0-100.0); PLATELET COUNT 591 thou/uL (150-400); RBC 3.17 mil/uL (4.20-5.00); RDW 14.2 % (10.5-14.5); WBC 13.7 thou/uL (4.0-11.0)
[2019-04-18 14:16] LABS: ABSOLUTE NEUTROPHILS 9.6 thou/uL (1.4-8.2)
--- NOTE | 2019-04-18 14:57 | NUR ---
PT WAS GIVEN COPIES OF HEP FOR STANDING EXERCISES WITH SUPPORT ON COUNTER. REVIEWED EXERCISES PER DISCUSSION, PT AND ACKNOWLEDGED UNDERSTANDING. PICTURES OF EXERCISES ON COPIES. APPROX 1420 PM.
--- NOTE | 2019-04-18 16:46 | NUR ---
VSS NSR REMAINS LUNGS DIMINISHED, O2 SAT RA IS 98%, PT UP IN ROOM AND STEADY ON FEET. BLOOD SUGARS MORE EVEN TODAY. WILL CONTINUE TO MONITER AND CARE FOR PT PER PLAN OF CARE
[2019-04-18 17:17] VITALS: BP 118/65
[2019-04-18 19:45] VITALS: BP 134/70
[2019-04-18 21:07] LABS: HISTOPLASMA MYCELIAL-ID Negative (Negative)
--- NOTE | 2019-04-19 02:26 | NUR ---
patient aox4 makes needs known. patient insulin was 78 at 2100, patient encouraged food and fluids at 2300 insulin was 132. family at bedside. patient refused hs lantus d/t having low blood sugar in the am. fall precaution in place. patient in bed asleep at this time breathing regular and unlaboured
[2019-04-19 05:04] VITALS: BP 145/77
[2019-04-19 08:43] VITALS: BP 153/90
[2019-04-19] MEDS ORDERED: NOVOLOG100 UNIT/1 SUBQ (11:46)
[2019-04-19] MEDS ORDERED: TORSEMIDE20 MG PO (11:46)
[2019-04-19] MEDS ORDERED: COREG6.25 MG PO (11:46)
[2019-04-19] MEDS ORDERED: AZITHROMYCIN 2250 MG PO (11:46)
[2019-04-19] MEDS ORDERED: LANTUS100 UNIT/M SUBQ (11:46)
[2019-04-19] MEDS ORDERED: CEFDINIR300 MG PO (11:46)
[2019-04-19 13:44] VITALS: BP 153/90
--- NOTE | 2019-04-19 14:45 | NUR ---
ASSUMED CARE AT SHIFT CHANGE, ALERT AND ORIENTED X4. DENEIS ANY CP OR DISCOMFORT. VSS, AND AFEBRILE. S/B KARU, AND DISCHARGE AND MEDICATIONS INSTRUCTIONS GIVEN, AND PATIENT WILL DISCHAGE WHEN FAMILY ARRIVES.
[2019-04-19 23:06] LABS: HISTOPLASMA MYCELIAL-CF Negative (Neg:<1:2)
[2019-04-20 21:05] LABS: ADENOVIRUS Negative (Negative); INFLUENZA A Negative (Negative); INFLUENZA B Negative (Negative); METAPNEUMOVIRUS Negative (Negative); PARAINFLUENZA 1 Negative (Negative); PARAINFLUENZA 2 Negative (Negative); PARAINFLUENZA 3 Negative (Negative); RHINOVIRUS Negative (Negative); RSV A Negative (Negative); RSV B Negative (Negative)
== END 2019-04-19 15:54 | disposition home or self-care (01) | DRG 871 ==
LOC: ER 13:56 → EROBS 15:11 → 2N 15:11 → ENTRNSPT 04-19 15:32 → 2N 04-19 15:54
PROVIDERS: Emergency Medicine; Hospitalist; Internal Medicine; Internal Medicine Nephrology; Nurse Practitioner Acute Care; Nurse Practitioner Adult Health; Specialist; ADMIT Internal Medicine
DX: A41.9 Sepsis, unspecified organism (principal); I50.33 Acute on chronic diastolic (congestive) heart failure; J96.01 Acute respiratory failure with hypoxia; E43 Unspecified severe protein-calorie malnutrition; I21.A1 Myocardial infarction type 2; N17.9 Acute kidney failure, unspecified; N18.5 Chronic kidney disease, stage 5; J81.1 Chronic pulmonary edema; I13.0 Hypertensive heart and chronic kidney disease with heart failure and stage 1 through stage 4 chronic kidney disease, or unspecified chronic kidney disease; D64.9 Anemia, unspecified; E87.5 Hyperkalemia; J45.909 Unspecified asthma, uncomplicated; J44.9 Chronic obstructive pulmonary disease, unspecified; D63.8 Anemia in other chronic diseases classified elsewhere; E11.22 Type 2 diabetes mellitus with diabetic chronic kidney disease; E78.5 Hyperlipidemia, unspecified; E11.42 Type 2 diabetes mellitus with diabetic polyneuropathy; E11.319 Type 2 diabetes mellitus with unspecified diabetic retinopathy without macular edema; I25.10 Atherosclerotic heart disease of native coronary artery without angina pectoris; Z86.73 Personal history of transient ischemic attack (TIA), and cerebral infarction without residual deficits; Z99.81 Dependence on supplemental oxygen; Z79.82 Long term (current) use of aspirin; Z79.899 Other long term (current) drug therapy; Z79.4 Long term (current) use of insulin
CPT/HCPCS: 10081; 10194

== ENCOUNTER 2019-05-17 21:49 | Emergency (ER) | payer OTHER ==
[~2019-05-17] VITALS: Ht 167.6 cm; Wt 92.5 kg
[~2019-05-17 21:49] MED LIST changes: +ALBUTEROL2.5 MG/0.5 INH; +AZITHROMYCIN 2250 MG PO; +CEFDINIR300 MG PO; +COREG6.25 MG PO; +LANTUS100 UNIT/M SUBQ; +NOVOLOG100 UNIT/1 SUBQ; +TORSEMIDE20 MG PO
[2019-05-18 00:12] LABS: BASOPHILS 1.3 % (0.0-2.0); HEMATOCRIT 29.7 % (37.0-47.0); HEMOGLOBIN 9.8 gm/dL (12.0-15.0); LYMPHOCYTES 24.7 % (24.0-44.0); MCH 26.8 pg (26.0-34.0); MCV 81.2 fL (80.0-100.0); MONOCYTES 4.5 % (1.0-8.0); PLATELET COUNT 499 thou/uL (150-400); POLYS 67.5 % (36.0-66.0); RBC 3.65 mil/uL (4.20-5.00); RDW 14.2 % (10.5-14.5); WBC 10.3 thou/uL (4.0-11.0)
[2019-05-18 00:16] LABS: ANION GAP 10 mmol/L (7-16); BUN 39 mg/dL (7-18); CALCIUM 9.1 mg/dL (8.5-10.1); CHLORIDE 101 mmol/L (98-107); CO2 27 mmol/L (21-32); CREATININE 3.7 mg/dL (0.6-1.0); GLUCOSE 167 mg/dL (74-106); POTASSIUM 4.6 mmol/L (3.5-5.1); SODIUM 138 mmol/L (136-145)
[2019-05-18 00:28] LABS: ALBUMIN 3.7 g/dL (3.4-5.0); SGOT 27 U/L (15-37); SGPT 32 U/L (30-65); TOTAL BILIRUBIN 0.1 mg/dL (<0.1-1.0); TOTAL PROTEIN 8.8 g/dL (6.4-8.2); TROPONIN-I <0.06 ng/mL (<0.06)
[2019-05-18 00:53] LABS: APTT 29.2 Seconds (24.5-32.8)
[2019-05-18] MEDS ORDERED: LEVAQUIN 500 M500 M1 PO (01:23)
[2019-05-18 02:07] VITALS: BP 134/89
--- NOTE | 2019-05-18 08:06 | EKG ---
[address] [place] [address] ELECTROCARDIOGRAM REPORT Name: GEORGE DELGADOHARDEEP Room #: DEP JACQUES Cervantes#: [id number] Admission: 05/17/19 Attend Phys: Discharge: 05/18/19 Date of : 68 Report #: [id number] THIS REPORT FOR: //name// [facility] ED Test Date: 2019-05-17 Test Time: 23:15:56 Pat Name: NICOLAS DELGADO Department: Room: Gender: F Senior Test Engineer: JOSE : 1970 Requested By: Rangel Cho Order Number: [id number] MD: Darius Srivastava Measurements Intervals [place] Rate: 96 P: 79 VT: 159 QRS: 27 QRSD: 85 T: -31 QT: 372 QTc: 471 Interpretive Statements Sinus rhythm Borderline T abnormalities, diffuse leads Compared to ECG 04/14/2019 07:29:19 T-wave abnormality now present Electronically Signed On 05-18-2019 8:05:52 CDT by Darius Srivastava [email or web address] <ELECTRONICALLY SIGNED> By: Darius Srivastava MD 05/18/19 08 14 14 Darius Srivastava MD /JORJE
== END 2019-05-18 02:07 | disposition home or self-care (01) ==
LOC: ER 21:49
PROVIDERS: Emergency Medicine
DX: J18.9 Pneumonia, unspecified organism (principal); R60.9 Edema, unspecified; R06.00 Dyspnea, unspecified; E11.22 Type 2 diabetes mellitus with diabetic chronic kidney disease; I13.0 Hypertensive heart and chronic kidney disease with heart failure and stage 1 through stage 4 chronic kidney disease, or unspecified chronic kidney disease; N18.9 Chronic kidney disease, unspecified; I50.9 Heart failure, unspecified; J45.909 Unspecified asthma, uncomplicated; E66.9 Obesity, unspecified; Z68.32 Body mass index [BMI] 32.0-32.9, adult; Z79.4 Long term (current) use of insulin; Z90.49 Acquired absence of other specified parts of digestive tract

== ENCOUNTER 2019-09-13 19:33 | Emergency (ER) | payer OTHER ==
[~2019-09-13] VITALS: Ht 167.6 cm; Wt 97.5 kg
[~2019-09-13 19:33] MED LIST changes: +LEVAQUIN 500 M500 M1 PO
[2019-09-13 20:22] LABS: ABSOLUTE NEUTROPHILS 7.8 thou/uL (1.4-8.2); BASOPHILS 0.4 % (0.0-2.0); EOSINOPHILS 2.2 % (0.0-3.0); HEMATOCRIT 31.5 % (37.0-47.0); HEMOGLOBIN 10.3 gm/dL (12.0-15.0); LYMPHOCYTES 27.7 % (24.0-44.0); MCH 27.5 pg (26.0-34.0); MCHC 32.8 g/dL (28.0-37.0); MCV 83.9 fL (80.0-100.0); MONOCYTES 5.7 % (1.0-8.0); PLATELET COUNT 365 thou/uL (150-400); RBC 3.75 mil/uL (4.20-5.00); RDW 15.9 % (10.5-14.5); WBC 12.3 thou/uL (4.0-11.0)
[2019-09-13 20:26] LABS: ANION GAP 6 mmol/L (7-16); BUN 46 mg/dL (7-18); CALCIUM 8.9 mg/dL (8.5-10.1); CHLORIDE 98 mmol/L (98-107); CO2 29 mmol/L (21-32); CREATININE 4.1 mg/dL (0.6-1.0); GLUCOSE 239 mg/dL (74-106); POTASSIUM 3.9 mmol/L (3.5-5.1); SODIUM 133 mmol/L (136-145)
[2019-09-13 20:34] LABS: TROPONIN-I <0.06 ng/mL (<0.06)
[2019-09-13] MEDS ORDERED: ZPAK PO (21:26)
[2019-09-13 22:07] VITALS: BP 142/75
--- NOTE | 2019-09-15 08:19 | EKG ---
[address] [place] [address] ELECTROCARDIOGRAM REPORT Name: NICOLAS DELGADO Room #: DEP JACQUES Cervantes#: [id number] Admission: 09/13/19 Attend Phys: Discharge: 09/13/19 Date of : 68 Report #: [id number] THIS REPORT FOR: //name// [facility] ED Test Date: 2019-09-13 Test Time: 20:20:27 Pat Name: NICOLAS DELGADO Department: Room: Gender: F Cco: : 1970 Requested By: Saman Valentino Order Number: [id number] MD: Nehemiah Butler Measurements Intervals [place] Rate: 73 P: 80 DE: 160 QRS: 29 QRSD: 105 T: 135 QT: 416 QTc: 459 Interpretive Statements Sinus rhythm Nonspecific T wave abnormality Compared to ECG 05/17/2019 23:15:56 Nonspecific change in the T wave abnormality Electronically Signed On 09-15-2019 8:18:36 EQUITY RESEARCH ANALYST by Nehemiah Butler [email or web address] <ELECTRONICALLY SIGNED> By: Nehemiah Butler MD, [facility] 09/15/19817 19 19 Nehemiah Bulter MD, FACC /EPI
== END 2019-09-13 21:59 | disposition home or self-care (01) ==
LOC: ER 19:33
PROVIDERS: Emergency Medicine
DX: J18.9 Pneumonia, unspecified organism (principal); I10 Essential (primary) hypertension; E11.9 Type 2 diabetes mellitus without complications; J45.909 Unspecified asthma, uncomplicated; Z90.49 Acquired absence of other specified parts of digestive tract